=== PATIENT | female | born 1955 | race American Indian/Alaskan Native ===

== ENCOUNTER 2019-10-31 09:42 | Emergency (ER) | payer MEDICARE ==
--- NOTE | 2019-10-31 11:10 | Vascular Lab Report ---
DUPLEX DOPPLER LOWER EXTREMITY VEINS, RIGHT INDICATION: Right lower extremity pain and swelling for one day. TECHNIQUE: Duplex doppler imaging was performed through the veins of the right lower extremity using venous compression and other maneuvers. COMPARISON: No relevant prior imaging study available. FINDINGS: Right Common femoral vein: Negative. Right Superficial femoral vein: Negative. Right Popliteal vein: Negative. Right Calf veins: Negative. Additional findings: Small popliteal cyst is noted in the popliteal fossa.. IMPRESSION: No sonographic evidence for DVT in the right lower extremity. Popliteal cyst. Signer Name: Matthew De La O Jr, MD Signed: 10/31/2019 11:06 AM Workstation Name: [id number]
[2019-10-31] MEDS ORDERED: CYCLOBENZAPRINE 10 MG TAB PO ONE (12:42)
[2019-10-31] MEDS ORDERED: traMADol 50 MG TAB PO ONE (12:42)
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
[2019-10-31] MEDS ORDERED: KETOROLAC 60 MG/2 ML INJ IM ONE (12:44)
--- NOTE | 2019-10-31 12:47 | Emergency Department Report ---
ED Lower Extremity HPI - General Chief Complaint: Extremity Problem,Nontraumatic Stated Complaint: RT LEG PAIN Time Seen by Provider: 10/31/19 11:48 Source: patient Mode of arrival: Ambulatory Limitations: No Limitations - History of Present Illness Initial Comments: This is a 64-year-old female here for right knee pain and swelling. She said she did not have a knee trauma or any history of arthritis. Patient does a lot of walking and climbing at work. She denies any swelling or pain to her calves. She denies any fever or chills. Denies any numbness or tingling to extremity or any history of arthritis. Patient has a history of high blood pressure that she takes cholesterol medication bed that is the only thing that she has and this started yesterday. Denies taking any pain medication MD Complaint: other (right knee pain and swelling) Onset/Timin -: days(s) Injury: Knee: Right (pain and swelling in) Type of Injury: unknown Severity: severe Severity scale (0 -10): 10 Improves With: rest Worsens With: weight bearing, movement Context: walking Associated Symptoms: swelling, able to partially bear weight. denies: numbness, tingling, unable to bear weight Treatments Prior to Arrival: other (none) - Related Data Previous Rx's Medication Instructions Recorded Last Taken Type Ibuprofen [Motrin] 600 mg PO Q8H PRN #12 tablet 10/31/19 Unknown Rx Allergies Allergy/AdvReac Type Severity Reaction Status Date / Time No Known Allergies Allergy Verified 11/06/16 04:50 ED Review of Systems ROS: Stated complaint: RT LEG PAIN Other details as noted in HPI Constitutional: denies: chills, fever Respiratory: denies: cough, shortness of breath, wheezing Cardiovascular: denies: chest pain, palpitations, edema, syncope Gastrointestinal: denies: abdominal pain, nausea, vomiting Genitourinary: denies: hematuria Musculoskeletal: joint swelling, arthralgia. denies: back pain, myalgia Skin: denies: rash Neurological: abnormal gait. denies: headache, numbness, paresthesias, vertigo ED Past Medical Hx - Past Medical History Previous Medical History?: Yes Hx Hypertension: Yes - Surgical History Past Surgical History?: No - Family History Family history: hypertension, other (high cholesterol) - Social History Smoking Status: Never Smoker Substance Use Type: None - Medications Home Medications: Home Medications Medication Instructions Recorded Confirmed Last Taken Type Ibuprofen [Motrin] 600 mg PO Q8H PRN #12 tablet 10/31/19 Unknown Rx ED Physical Exam - General Limitations: No Limitations General appearance: alert, in no apparent distress - Head Head exam: Present: atraumatic, normocephalic - ENT ENT exam: Present: normal exam, normal orophraynx, mucous membranes moist, TM's normal bilaterally, normal external ear exam - Neck Neck exam: Present: normal inspection, full ROM, other ( full range of motion). Absent: tenderness, lymphadenopathy - Respiratory Respiratory exam: Present: normal lung sounds bilaterally. Absent: respiratory distress, chest wall tenderness - Cardiovascular Cardiovascular Exam: Present: regular rate, normal rhythm, normal heart sounds - Extremities Exam Extremities exam: Present: normal inspection, full ROM, tenderness (tender to palpate right knee with effusion. Pain with range of motion.), normal capillary refill, joint swelling, other (my extremity physical exam except for right knee swelling and tenderness to palpation and range of motion). Absent: pedal edema, calf tenderness - Expanded Lower Extremity Exam Right Hip exam: Present: normal inspection, full ROM, pelvic stability. Absent: tenderness, swelling Upper Leg exam: Present: normal inspection, full ROM. Absent: tenderness, swelling, erythema Knee exam: Present: full ROM (pain range of motion), tenderness (right anterior knee), swelling (right medial knee), crepidus, effusion, pain w/ pronation/supination, full knee extension (full knee extension but she has moderate pain with flexion and extension). Absent: normal inspection, abrasion, laceration, ecchymosis, deformity, dislocation, erythema, pain/laxity with valgus, pain/laxity with varus Lower Leg exam: Present: normal inspection, full ROM. Absent: erythema, palpable cord, Kirsty's sign Foot/Toe exam: Present: normal inspection, full ROM. Absent: tenderness, deformity, crepidus, erythema, calcaneal tenderness, tenderness at base of 5th metatarsal, nail avulsion, subungual hematoma Neuro vascular tendon exam: Present: no vascular compromise Gait: Positive: antalgic - Back Exam Back exam: Present: normal inspection, full ROM, other (ambulates with limp to the right side due to knee pain and swelling). Absent: tenderness, CVA tenderness (R), CVA tenderness (L), muscle spasm, paraspinal tenderness, vertebral tenderness, rash noted - Neurological Exam Neurological exam: Present: alert, oriented X3, abnormal gait (knee pain and swelling), reflexes normal - Psychiatric Psychiatric exam: Present: normal affect, normal mood - Skin Skin exam: Present: warm, dry, intact, normal color. Absent: rash ED Course Vital Signs 10/31/19 10/31/19 09:49 13:16 Temperature 98.0 F 98.6 F Pulse Rate 92 H 71 Respiratory 16 17 Rate Blood Pressure 117/54 Blood Pressure 135/69 [Right] O2 Sat by Pulse 99 100 Oximetry - Reevaluation(s) Reevaluation #1: 10/31/19 15:23 Patient received Toradol 60 mg IM in emergency room she said makes her pain better. ED Lower Extremity MDM - Radiology Data Radiology results: report reviewed Venous Doppler duplex ultrasound to further extremity shows no DVT but small popliteal cyst. X-ray of right knee shows severe medial compartment joint space narrowing with bone spurring F an moderate effusion.[facility] [address] [place] [address] Vascular Lab Report Signed Patient: KAYLEE JIMENEZ MR#: [id number] : 1955 Acct:[id number] Age/Sex: 64 / F ADM Date: 10/31/19 Loc: ED Attending Dr: Ordering Physician: SARAH ROBLES MD Date of Service: 10/31/19 Procedure(s): VL venous duplex LE RT Accession Number(s): [id number] cc: SARAH ROBLES MD DUPLEX DOPPLER LOWER EXTREMITY VEINS, RIGHT INDICATION: Right lower extremity pain and swelling for one day. TECHNIQUE: Duplex doppler imaging was performed through the veins of the right lower extremity using venous compression and other maneuvers. COMPARISON: No relevant prior imaging study available. FINDINGS: Right Common femoral vein: Negative. Right Superficial femoral vein: Negative. Right Popliteal vein: Negative. Right Calf veins: Negative. Additional findings: Small popliteal cyst is noted in the popliteal fossa.. IMPRESSION: No sonographic evidence for DVT in the right lower extremity. Popliteal cyst. Signer Name: Matthew De La O Jr, MD Signed: 10/31/2019 11:06 AM Workstation Name: [id number] Transcribed By: TTR Dictated By: MATTHEW DE LA O JR, MD Electronically Authenticated By: MATTHEW DE LA O JR, MD Signed Date/Time: 10/31/19 1106 DD/ 1100 TD/TT: Findings [facility] [address] [place] [address] XRay Report Signed Patient: KAYLEE JIMENEZ MR#: [id number] : 1955 Acct:[id number] Age/Sex: 64 / F ADM Date: 10/31/19 Loc: ED Attending Dr: Ordering Physician: MARLENI REDD Date of Service: 10/31/19 Procedure(s): XR knee 3V RT Accession Number(s): [id number] cc: MARLENI REDD Fluoro Time In Minutes: RIGHT KNEE, 3 VIEWS INDICATION: pain and swelling right knee. COMPARISON: None. IMPRESSION: Severe medial compartment joint space narrowing is identified. Moderate retropatellar spurring is identified. There are mild osteoarthritic changes in the lateral compartment. No e vidence for fracture or bone lesion. Moderate joint effusion is identified on the lateral image. Signer Name: Matthew De La O Jr, MD Signed: 10/31/2019 2:17 PM Workstation Name: [id number] Transcribed By: TTR Dictated By: MATTHEW DE LA O JR, MD Electronically Authenticated By: MATTHEW DE LA O JR, MD Signed Date/Time: 10/31/19 1417 DD/ 1416 TD/TT: - Medical Decision Making This 64-year-old female here for right knee pain that started yesterday. Patient has ultrasound Doppler that shows no DVT or SVT but small popliteal cyst. X-ray shows severe degenerative joint disease with moderate effusion. - Differential Diagnosis fx/dislocation. ostemyelitis, DJD, effusion Critical care attestation.: If time is entered above; I have spent that time in minutes in the direct care of this critically ill patient, excluding procedure time. ED Disposition Clinical Impression: Effusion, right knee Degenerative joint disease of knee, right Qualifiers: Osteoarthritis type: unspecified Qualified Code(s): M17.11 - Unilateral primary osteoarthritis, right knee Torres's cyst of knee Qualifiers: Laterality: right Qualified Code(s): M71.21 - Synovial cyst of popliteal space [Torres], right knee Disposition: - TO HOME OR SELFCARE Is pt being admited?: No Does the pt Need Aspirin: No Condition: Stable Instructions: Knee Effusion (ED), Arthralgia (ED), Knee Exercises (GEN), Osteoarthritis (ED), Knee Immobilizer (ED), Crutch Instructions (ED), RICE Therapy (ED) Additional Instructions: Follow-up with orthopedic doctor as instructed. You can go to Dr. Avalos or research and orthopedic If he condition worsens, return to the emergency room. Take Motrin as prescribed to take this medication with food as it can cause irritation if his stomach lining Referrals: NIVIA HOLLIS MD [Primary Care Provider] - 2-3 Days JOHANN AVALOS MD [Staff Physician] - 11/03/[address] [facility] [Provider Group] - 11/03/19 Forms: Work/School Release Form(ED)
[2019-10-31 13:17] VITALS: BP 117/54
--- NOTE | 2019-10-31 14:21 | XRay Report ---
RIGHT KNEE, 3 VIEWS INDICATION: pain and swelling right knee. COMPARISON: None. IMPRESSION: Severe medial compartment joint space narrowing is identified. Moderate retropatellar sp urring is identified. There are mild osteoarthritic changes in the lateral compartment. No evidence f or fracture or bone lesion. Moderate joint effusion is identified on the lateral image. Signer Name: Matthew De La O Jr, MD Signed: 10/31/2019 2:17 PM Workstation Name: [id number]
== END 2019-10-31 15:46 | disposition home or self-care (01) ==
LOC: ED 09:42
DX: M25.461 Effusion, right knee (principal); M17.11 Unilateral primary osteoarthritis, right knee; M71.21 Synovial cyst of popliteal space [Baker], right knee; I10 Essential (primary) hypertension; Z79.1 Long term (current) use of non-steroidal anti-inflammatories (NSAID)
CPT/HCPCS: 73562; 93971; 96372; 99284; J1885

== ENCOUNTER 2020-10-07 19:28 | Emergency (ER) | payer MEDICARE ==
--- NOTE | 2020-10-07 22:26 | Event Note ---
ED Screening Note ED Screening Note: muscle crampings bilateral legs that began today after work states she was on her feet all day no leg swelling no fever no n/v/d no cough no SOB no dysuria no urinary frequency PMHx HTN, HLD, borderline DM This initial assessment/diagnostic orders/clinical plan/treatment(s) is/are subject to change based on patients health status, clinical progression and re- assessment by fellow clinical providers in the ED. Further treatment and workup at subsequent clinical providers discretion. Patient/guardian urged not to elope from the ED as their condition may be serious if not clinically assessed and managed. Initial orders include: labs, UA
[2020-10-07 23:18] LABS: Bilirubin,Urine NEG (Negative); Blood,Urine NEG (Negative); Color,Urine Colorless (Yellow); Protein,Urine <15 mg/dL mg/dL (Negative); Urobilinogen,Urine < 2.0 mg/dL (<2.0)
[2020-10-08 00:25] LABS: Hematocrit 38.8 % (30.3-42.9); Hemoglobin 12.7 gm/dl (10.1-14.3); Mean Corpuscular HGB Conc 33 % (30-34); Mean Corpuscular Volume 85 fl (79-97); Platelet Count 189 K/mm3 (140-440); Red Blood Count 4.58 M/mm3 (3.65-5.03); Red Cell Distribution Width 14.3 % (13.2-15.2)
[2020-10-08 00:30] LABS: Basophils # (Auto) 0.1 K/mm3 (0.0-0.1); Basophils % (Auto) 1.1 % (0.0-1.8); Eosinophils % (Auto) 0.1 % (0.0-4.3); Lymphocytes # (Auto) 0.9 K/mm3 (1.2-5.4); Lymphocytes % (Auto) 14.5 % (13.4-35.0); Monocytes # (Auto) 1.6 K/mm3 (0.0-0.8)
[2020-10-08 01:06] LABS: BUN/Creatinine Ratio 11; Blood Urea Nitrogen 8 mg/dL (7-17); Calcium 9.2 mg/dL (8.4-10.2)
[2020-10-08 01:07] LABS: Alanine Aminotransferase 12 units/L (7-56); Albumin 4.7 g/dL (3.9-5); Hemolysis Index 35
[2020-10-08] MEDS ORDERED: traMADol 50 MG TAB PO ONE (01:48)
[2020-10-08] MEDS ORDERED: KETOROLAC 60 MG/2 ML INJ IM ONE (01:48)
--- NOTE | 2020-10-08 01:48 | Emergency Department Report ---
ED General Adult HPI - General Chief complaint: Weakness Stated complaint: FEVER Time Seen by Provider: 10/07/20 22:24 Source: EMS Mode of arrival: Ambulatory Limitations: No Limitations - History of Present Illness Initial comments: Patient is a 65-year-old female presents emergency room with complaints of muscle cramping to the bilateral legs that began today after work. she states she was on her feet all day. She states that she has had similar symptoms in the past. She denies any leg swelling, fever, n/v/d, cough, SOB, dysuria, urinary frequency, dark urine. she denies any fall or injury. she denies any numbness or weakness. PMHx HTN, HLD, borderline DM - Related Data Previous Rx's Medication Instructions Recorded Last Taken Type Ibuprofen [Motrin] 600 mg PO Q8H PRN #12 tablet 10/31/19 Unknown Rx Naproxen [EC-Naprosyn] 375 mg PO BID PRN #14 tablet. 10/08/20 Unknown Rx methOCARBAMOL [Robaxin TAB] 500 mg PO BID PRN #14 tab 10/08/20 Unknown Rx Allergies Allergy/AdvReac Type Severity Reaction Status Date / Time No Known Allergies Allergy Verified 11/06/16 04:50 ED Review of Systems ROS: Stated complaint: FEVER Other details as noted in HPI Comment: All other systems reviewed and negative ED Past Medical Hx - Past Medical History Hx Hypertension: Yes Hx Diabetes: Yes (boarderline) Additional medical history: cholesterol - Social History Smoking Status: Never Smoker Substance Use Type: None - Medications Home Medications: Home Medications Medication Instructions Recorded Confirmed Last Taken Type Ibuprofen [Motrin] 600 mg PO Q8H PRN #12 tablet 10/31/19 Unknown Rx Naproxen [EC-Naprosyn] 375 mg PO BID PRN #14 tablet. 10/08/20 Unknown Rx methOCARBAMOL [Robaxin TAB] 500 mg PO BID PRN #14 tab 10/08/20 Unknown Rx ED Physical Exam - General Limitations: No Limitations General appearance: alert, in no apparent distress - Head Head exam: Present: atraumatic, normocephalic - Eye Eye exam: Present: normal appearance - ENT ENT exam: Present: mucous membranes moist - Respiratory Respiratory exam: Present: normal lung sounds bilaterally. Absent: respiratory distress, wheezes, rales, rhonchi, stridor, chest wall tenderness, accessory muscle use, decreased breath sounds, prolonged expiratory - Cardiovascular Cardiovascular Exam: Present: regular rate, normal rhythm, normal heart sounds. Absent: systolic murmur, diastolic murmur, rubs, gallop - Extremities Exam Extremities exam: Present: other (no ttp of the BLE, no edema BLE, no skin changes, no increased warmth, no erythema, FROM of the BLE, no calf ttp bilaterally, neurovascularly intact) - Neurological Exam Neurological exam: Present: alert, oriented X3, CN II-XII intact, normal gait. Absent: motor sensory deficit - Psychiatric Psychiatric exam: Present: normal affect, normal mood - Skin Skin exam: Present: warm, dry, intact ED Course Vital Signs 10/07/20 20:23 Temperature 99.1 F Pulse Rate 93 H Respiratory 17 Rate Blood Pressure 137/67 O2 Sat by Pulse 99 Oximetry ED Medical Decision Making - Lab Data Result diagrams: 10/07/20 23:35 10/07/20 23:35 Lab Results 10/07/20 10/07/20 10/07/20 Range/Units 23:35 23:35 Unknown WBC 6.0 (4.5-11.0) K/mm3 RBC 4.58 (3.65-5.03) M/mm3 Hgb 12.7 (10.1-14.3) gm/dl Hct 38.8 (30.3-42.9) % MCV 85 (79-97) fl MCH 28 (28-32) pg MCHC 33 (30-34) % RDW 14.3 (13.2-15.2) % Plt Count 189 (140-440) K/mm3 Lymph % (Auto) 14.5 (13.4-35.0) % Lamb % (Auto) Baby Nurse Eos % (Auto) 0.1 (0.0-4.3) % Baso % (Auto) 1.1 (0.0-1.8) % Lymph # (Auto) 0.9 L (1.2-5.4) K/mm3 Lamb # (Auto) 1.6 H (0.0-0.8) K/mm3 Eos # (Auto) 0.0 (0.0-0.4) K/mm3 Baso # (Auto) 0.1 (0.0-0.1) K/mm3 Seg Neutrophils % 56.9 (40.0-70.0) % Seg Neutrophils # 3.4 (1.8-7.7) K/mm3 Sodium 141 (137-145) mmol/L Potassium 4.1 (3.6-5.0) mmol/L Chloride 105.4 (98-107) mmol/L Carbon Dioxide 21 L (22-30) mmol/L Anion Gap 19 mmol/L BUN 8 (7-17) mg/dL Creatinine 0.7 (0.6-1.2) mg/dL Estimated GFR > 60 ml/min BUN/Creatinine Ratio 11 % Glucose 99 (65-100) mg/dL Calcium 9.2 (8.4-10.2) mg/dL Total Bilirubin 0.40 (0.1-1.2) mg/dL AST 21 (5-40) units/L ALT 12 (7-56) units/L Alkaline Phosphatase 101 (35-129) units/L Total Creatine Kinase 142 H (30-135) units/L Total Protein 7.1 (6.3-8.2) g/dL Albumin 4.7 (3.9-5) g/dL Albumin/Globulin Ratio 2.0 % Urine Color Colorless (Yellow) Urine Turbidity Clear (Clear) Urine pH 8.0 H (5.0-7.0) Ur Specific [place] 1.002 L (1.003-1.030) Urine Protein <15 mg/dl (Negative) mg/dL Urine Glucose (UA) Neg (Negative) mg/dL Urine Ketones Neg (Negative) mg/dL Urine Blood Neg (Negative) Urine Nitrite Neg (Negative) Urine Bilirubin Neg (Negative) Urine Urobilinogen < 2.0 (<2.0) mg/dL Ur Leukocyte Esterase Mod (Negative) Urine WBC (Auto) 2.0 (0.0-6.0) /HPF Urine RBC (Auto) 3.0 (0.0-6.0) /HPF U Epithel Cells (Auto) 2.0 (0-13.0) /HPF - Medical Decision Making Patient is a 65-year-old female presents emergency room with complaints of muscl e cramping to the bilateral legs that began today after work. she states she was on her feet all day. She states that she has had similar symptoms in the past. She denies any leg swelling, fever, n/v/d, cough, SOB, dysuria, urinary frequency, dark urine. she denies any fall or injury. she denies any numbness or weakness. PMHx HTN, HLD, borderline DM. VSS. on exam: no ttp of the BLE, no edema BLE, no skin changes, no increased warmth, no erythema, FROM of the BLE, no calf ttp bilaterally, neurovascularly intact. Labs and UA are stable. Patient given Toradol IM and tramadol while in the emergency department and symptoms improved and she was not driving. She has no clinical signs of DVT. She has no clinical signs of infection or cellulitis. Patient given prescription for Robaxin and naproxen. Advised patient to please use medication as prescribed as needed. May use ice pack, heating pad, rest, Epson salt bath, elevation of the legs. Follow-up with your primary care doctor. Follow-up with orthopedic doctor. Return to emergency room for any new or worsening symptoms. - Differential Diagnosis Strain, muscle cramp, rhabdomyolysis, electrolyte disturbance, myositis Critical care attestation.: If time is entered above; I have spent that time in minutes in the direct care of this critically ill patient, excluding procedure time. ED Disposition Clinical Impression: Bilateral leg cramps Disposition: DC-01 TO HOME OR SELFCARE Is pt being admited?: No Does the pt Need Aspirin: No Condition: Stable Instructions: Muscle Cramps and Spasms, [id number] Additional Instructions: please use medication as prescribed as needed. Do not drive or operate machinery while taking muscle relaxer Robaxin. May use ice pack, heating pad, rest, Epson salt bath, elevation of the legs. Follow-up with your primary care doctor. Follow-up with orthopedic doctor. Return to emergency room for any new or worsening symptoms. Prescriptions: Naproxen [EC-Naprosyn] 375 mg PO BID PRN #14 tablet.dr PRN Reason: pain methOCARBAMOL [Robaxin TAB] 500 mg PO BID PRN #14 tab PRN Reason: pain Referrals: PRIMARY MD GUANAKO [Primary Care Provider] - 2-3 Days CON RAI MD [Staff Physician] - 2-3 Days [facility] [Provider Group] - 2-3 Days JOHANN HOLT MD [Staff Physician] - 2-[address] [facility] [Provider Group] - 2-3 Days Forms: Work/School Release Form(ED) Time of Disposition: 01:53 Print Language: BELARUSIAN
[2020-10-08 07:55] VITALS: BP 133/62
== END 2020-10-08 02:25 | disposition home or self-care (01) ==
LOC: ED 19:28
DX: M79.605 Pain in left leg (principal); M79.604 Pain in right leg; F50.9 Eating disorder, unspecified; R53.1 Weakness; I10 Essential (primary) hypertension; E11.9 Type 2 diabetes mellitus without complications; Z79.1 Long term (current) use of non-steroidal anti-inflammatories (NSAID); Z79.899 Other long term (current) drug therapy
CPT/HCPCS: 36415; 80053; 81001; 82550; 85025; 96372; 99283; J1885

== ENCOUNTER 2021-04-10 22:25 | Observation (INO) | payer MEDICARE ==
[2021-04-10] MEDS ORDERED: ASPIRIN 325 MG TAB PO ONE (22:32)
--- NOTE | 2021-04-10 22:51 | Emergency Department Report ---
ED Chest Pain HPI - General Chief Complaint: Chest Pain Stated Complaint: GAS/CHEST PAIN PUI?: No Time Seen by Provider: 04/10/21 22:39 Source: patient Mode of arrival: Ambulatory Limitations: No Limitations - History of Present Illness Initial Comments: Patient is a 65-year-old female that presents emergency room with complaints of chest pain. Patient states the chest pain is in the substernal left chest that is radiating to her left upper extremity and left lateral chest. Patient denies shortness of breath. Patient denies fever or chills. Patient denies nausea and vomiting. Patient complains of diaphoresis at times. Patient states that the chest pain started at 9 PM. Patient states the chest pain is worsening. Patient states she has a history of high blood pressure and hyperlipidemia. Patient denies recent travel. Patient denies recent international travel. Patient denies exposure to the novel coronavirus. Patient denies sick contacts. Patient denies fever and chills. Patient denies cough. Patient denies diarrhea. Patient denies coming in contact with anybody with symptoms of the novel coronavirus. MD Complaint: chest pain -: Sudden Onset: during rest Pain Location: substernal Pain Radiation: LUE Severity: severe Severity scale (0 -10): 10 Quality: sharp Consistency: constant Improves With: rest Worsens With: exertion re: denies: nausea, vomting, diaphoresis, dyspnea, sense of impending doom Other Symptoms: denies: cough, fever, syncope, rash, acid taste in mouth, leg swelling, palpitations, burping Treatments Prior to Arrival: none Aspirin use within the Past 7 Days: (1) Yes - Related Data On Oral Contraceptives: No Previous Rx's Medication Instructions Recorded Last Taken Type Ibuprofen [Motrin] 600 mg PO Q8H PRN #12 tablet 10/31/19 Unknown Rx Naproxen [EC-Naprosyn] 375 mg PO BID PRN #14 tablet. 10/08/20 Unknown Rx methOCARBAMOL [Robaxin TAB] 500 mg PO BID PRN #14 tab 10/08/20 Unknown Rx Allergies Allergy/AdvReac Type Severity Reaction Status Date / Time No Known Allergies Allergy Verified 11/06/16 04:50 Heart Score - HEART Score History: Moderately suspicious EKG: Normal Age: > 65 Risk factors: 1-2 risk factors Troponin: < normal limit HEART Score: 4 - EKG Read Time Time EKG Completed: 22:37 EKG Read Time: 22:39 ED Review of Systems ROS: Stated complaint: GAS/CHEST PAIN Other details as noted in HPI Constitutional: denies: chills, fever Eyes: denies: eye pain, eye discharge, vision change ENT: denies: ear pain, throat pain Respiratory: denies: cough, shortness of breath, wheezing Cardiovascular: as per HPI, chest pain. denies: palpitations Endocrine: no symptoms reported Gastrointestinal: denies: abdominal pain, nausea, diarrhea Genitourinary: denies: urgency, dysuria, discharge Musculoskeletal: denies: back pain, joint swelling, arthralgia Skin: denies: rash, lesions Neurological: denies: headache, weakness, paresthesias Psychiatric: denies: anxiety, depression Hematological/Lymphatic: denies: easy bleeding, easy bruising ED Past Medical Hx - Past Medical History Previous Medical History?: Yes Hx Hypertension: Yes Hx Diabetes: Yes (boarderline) Additional medical history: cholesterol - Surgical History Past Surgical History?: No - Family History Family history: no significant - Social History Smoking Status: Never Smoker Substance Use Type: None - Medications Home Medications: Home Medications Medication Instructions Recorded Confirmed Last Taken Type Ibuprofen [Motrin] 600 mg PO Q8H PRN #12 tablet 10/31/19 Unknown Rx Naproxen [EC-Naprosyn] 375 mg PO BID PRN #14 tablet.dr 10/08/20 Unknown Rx methOCARBAMOL [Robaxin TAB] 500 mg PO BID PRN #14 tab 10/08/20 Unknown Rx ED Physical Exam - General Limitations: No Limitations General appearance: alert, in no apparent distress - Head Head exam: Present: atraumatic, normocephalic - Eye Eye exam: Present: normal appearance - ENT ENT exam: Present: mucous membranes moist - Neck Neck exam: Present: normal inspection - Respiratory Respiratory exam: Present: normal lung sounds bilaterally. Absent: respiratory distress, wheezes, rales - Cardiovascular Cardiovascular Exam: Present: regular rate, normal rhythm. Absent: systolic murmur, diastolic murmur, rubs, gallop - GI/Abdominal GI/Abdominal exam: Present: soft, normal bowel sounds - Extremities Exam Extremities exam: Present: normal inspection - Back Exam Back exam: Present: normal inspection - Neurological Exam Neurological exam: Present: alert, oriented X3 - Psychiatric Psychiatric exam: Present: normal affect, normal mood - Skin Skin exam: Present: warm, dry, intact, normal color. Absent: rash ED Course Vital Signs 04/10/21 04/10/21 23:19 23:49 Respiratory 16 16 Rate - Reevaluation(s) Reevaluation #1: Patient's chest pain has improved. Patient received morphine and aspirin. I discussed all results with patient. I discussed plan of care with patient. Patient agrees with plan of care and admission. Patient to be admitted to the hospitalist service. 04/11/21 00:06 - Consultations Consultation #1: Hospitalist consulted for admission. Hospitalist to admit patient. 04/11/21 00:07 CELINA score - Celina Score Age > 65: (1) Yes Aspirin use within the Past 7 Days: (1) Yes 3 or more CAD Risk Factors: (0) No 2 or more Angina events in past 24 hrs: (0) No Known CAD with more than 50% Stenosis: (0) No Elevated Cardiac Markers: (0) No ST Deviation Greater than 0.5mm: (0) No CELINA Score: 2 ED Medical Decision Making - Lab Data Result diagrams: 04/10/21 22:41 04/10/21 22:41 - EKG Data -: EKG Interpreted by Me EKG shows normal: sinus rhythm, axis, intervals, QRS complexes, ST-T waves Rate: normal - Radiology Data Radiology results: report reviewed, image reviewed interpreted by me: Chest x-ray: No pneumonia, no pneumothorax, no foreign body, no osseous findings, no acute findings CHEST 1 VIEW 04/10/2021 10:40 PM INDICATION / CLINICAL INFORMATION: chest pain. COMPARISON: None available. FINDINGS: SUPPORT DEVICES: None. HEART / MEDIASTINUM: No significant abnormality. LUNGS / PLEURA: Lung volumes are reduced without an acute pulmonary abnormality. No significant pleural effusion. No pneumothorax. ADDITIONAL FINDINGS: No significant additional findings. IMPRESSION: 1. No acute abnormality of the chest. - Medical Decision Making Patient is a 65-year-old female that presents emergency room with complaints of chest pain. Patient chest pain is the left chest and substernal and was radiating to left shoulder and the left lateral chest. Patient brought to acute care room immediately after triage. Patient given aspirin and morphine and Zofran after initial evaluation. Patient chest pain improved. Patient had labs done which were essentially unremarkable. Patient EKG done which was negative for acute findings and shows a normal sinus rhythm. Patient EKG does not show any ST segment changes but shows a sinus arrhythmia. I personally reviewed the EKG. Patient had a chest x-ray which was negative for acute findings. I pe rsonally reviewed the chest x-ray. Patient has an elevated heart score and will require inpatient rule out of ACS. Patient admitted to the hospital service for further evaluation treatment and rule out ACS. Critical care time documented due to the multiple reassessments, prolonged time at the bedside, interpretation of diagnostics and labs. - Differential Diagnosis Chest pain, ACS, gastritis, Critical Care Time: Yes Critical care time in (mins) excluding proc time.: 35 Critical care attestation.: If time is entered above; I have spent that time in minutes in the direct care of this critically ill patient, excluding procedure time. Critical Care Time: 35 minutes ED Disposition Clinical Impression: Chest pain Qualifiers: Chest pain type: unspecified Qualified Code(s): R07.9 - Chest pain, unspecified Disposition: OP ADMIT IP TO THIS HOSP Is pt being admited?: Yes Does the pt Need Aspirin: No Condition: Critical Time of Disposition: 00:09
--- NOTE | 2021-04-10 23:02 | XRay Report ---
CHEST 1 VIEW 04/10/2021 10:40 PM INDICATION / CLINICAL INFORMATION: chest pain. COMPARISON: None available. FINDINGS: SUPPORT DEVICES: None. HEART / MEDIASTINUM: No significant abnormality. LUNGS / PLEURA: Lung volumes are reduced without an acute pulmonary abnormality. No significant pleur al effusion. No pneumothorax. ADDITIONAL FINDINGS: No significant additional findings. IMPRESSION: 1. No acute abnormality of the chest. Signer Name: William Fraga MD Signed: 04/10/2021 10:58 PM Workstation Name: [id number]
[2021-04-10 23:07] LABS: Basophils # (Auto) 0.1 K/mm3 (0.0-0.1); Basophils % (Auto) 0.7 % (0.0-1.8); Eosinophils # (Auto) 0.1 K/mm3 (0.0-0.4); Eosinophils % (Auto) 1.3 % (0.0-4.3); Hematocrit 39.7 % (30.3-42.9); Hemoglobin 12.9 gm/dl (10.1-14.3); Lymphocytes # (Auto) 2.5 K/mm3 (1.2-5.4); Lymphocytes % (Auto) 28.7 % (13.4-35.0); Mean Corpuscular HGB Conc 33 % (30-34); Mean Corpuscular Volume 85 fl (79-97); Monocytes # (Auto) 0.6 K/mm3 (0.0-0.8); Monocytes % (Auto) 7.5 % (0.0-7.3); Platelet Count 238 K/mm3 (140-440); Red Blood Count 4.69 M/mm3 (3.65-5.03); Red Cell Distribution Width 13.7 % (13.2-15.2)
[2021-04-10] MEDS ORDERED: MORPHINE 2 MG/1 ML INJ IV ONE (23:11)
[2021-04-10] MEDS ORDERED: ONDANSETRON 4 MG/2 ML INJ IV ONE (23:11)
[2021-04-10] MEDS ORDERED: ONDANSETRON 4 MG/2 ML INJ ONE (23:16)
[2021-04-10] MEDS ORDERED: MORPHINE 4 MG/1 ML INJ ONE (23:16)
[2021-04-10 23:30] LABS: Alanine Aminotransferase 16 units/L (7-56); Albumin 4.3 g/dL (3.9-5); Blood Urea Nitrogen 14 mg/dL (7-17); Calcium 8.6 mg/dL (8.4-10.2); Hemolysis Index 4
[2021-04-10 23:32] LABS: BUN/Creatinine Ratio 28
[2021-04-11] MEDS ORDERED: NITROGLYCERIN 0.4 MG TAB SUBL SL PRN (01:23)
[2021-04-11] MEDS ORDERED: ACETAMINOPHEN 325 MG TAB PO PRN (01:23)
[2021-04-11] MEDS ORDERED: traMADol 50 MG TAB PO PRN (01:23)
[2021-04-11] MEDS ORDERED: NAPROXEN 375 MG PO PRN (01:23)
[2021-04-11] MEDS ORDERED: IBUPROFEN 600 MG TAB PO PRN (01:23)
[2021-04-11] MEDS ORDERED: MORPHINE 4 MG/1 ML INJ IV PRN (01:23)
[2021-04-11] MEDS ORDERED: DEXTROSE 50% IN WATER (25GM) 50 ML SYRINGE IV PRN (01:25)
[2021-04-11] MEDS ORDERED: hydrALAZINE 20 MG/1 ML INJ IV PRN (01:25)
[2021-04-11] MEDS ORDERED: SODIUM CHLORIDE 0.9% 1000 ML 1,000 ML IV SCH (01:30)
--- NOTE | 2021-04-11 01:31 | History and Physical Report ---
History of Present Illness Date of examination: 04/11/21 Date of admission: 04/11/21 00:09 Chief complaint: Chest pain History of present illness: 65-year-old female with past medical history of hypertension, hyperlipidemia, borderline diabetes was brought to the emergency room with complaints of chest pain which is in the substernal sharp 10/10 left chest that is radiating to her left upper extremity and left lateral chest. Patient denies shortness of breath. Patient denies fever or chills. Patient denies nausea and vomiting. Patient complains of diaphoresis at times. Patient states that the chest pain started at 9 PM. Patient states the chest pain is worsening. In the emergency room initial cardiac enzyme is negative troponin is 0.010 Past History Past Medical History: diabetes, hypertension, hyperlipidemia Medications and Allergies Allergies Allergy/AdvReac Type Severity Reaction Status Date / Time No Known Allergies Allergy Verified 11/06/16 04:50 Home Medications Medication Instructions Recorded Confirmed Last Taken Type Ibuprofen [Motrin] 600 mg PO Q8H PRN #12 tablet 10/31/19 Unknown Rx Naproxen [EC-Naprosyn] 375 mg PO BID PRN #14 tablet. 10/08/20 Unknown Rx methOCARBAMOL [Robaxin TAB] 500 mg PO BID PRN #14 tab 10/08/20 Unknown Rx Review of Systems Cardiovascular: chest pain Exam - Constitutional Vitals: Temp Pulse Resp BP Pulse Ox 98.2 F 82 12 161/80 98 04/10/21 22:29 04/11/21 00:00 04/11/21 00:00 04/11/21 00:00 04/11/21 00:00 General appearance: Present: no acute distress, well-nourished - EENT Eyes: Present: PERRL ENT: hearing intact, clear oral mucosa - Neck Neck: Present: supple, normal ROM - Respiratory Respiratory effort: normal Respiratory: bilateral: CTA - Cardiovascular Heart Sounds: Present: S1 & S2. Absent: rub, click - Extremities Extremities: pulses symmetrical, No edema Peripheral Pulses: within normal limits - Abdominal General gastrointestinal: Present: soft, non-tender, non-distended, normal bowel sounds Female genitourinary: Present: normal - Integumentary Integumentary: Present: clear, warm, dry - Musculoskeletal Musculoskeletal: gait normal, strength equal bilaterally - Psychiatric Psychiatric: appropriate mood/affect, intact judgment & insight - Neurologic Neurologic: CNII-XII intact, moves all extremities HEART Score - HEART Score EKG: Normal Age: > 65 Risk factors: 1-2 risk factors Troponin: Troponin T < 0.010 ng/mL (0.00-0.029) 04/10/21 22:41 Troponin: < normal limit Results - Labs CBC & Chem 7: 04/10/21 22:41 04/10/21 22:41 Labs: Laboratory Last Values WBC 8.6 K/mm3 (4.5-11.0) 04/10/21 22:41 RBC 4.69 M/mm3 (3.65-5.03) 04/10/21 22:41 Hgb 12.9 gm/dl (10.1-14.3) 04/10/21 22:41 Hct 39.7 % (30.3-42.9) 04/10/21 22:41 MCV 85 fl (79-97) 04/10/21 22:41 MCH 28 pg (28-32) 04/10/21 22:41 MCHC 33 % (30-34) 04/10/21 22:41 RDW 13.7 % (13.2-15.2) 04/10/21 22:41 Plt Count 238 K/mm3 (140-440) 04/10/21 22:41 Lymph % (Auto) 28.7 % (13.4-35.0) 04/10/21 22:41 [place] % (Auto) 7.5 % (0.0-7.3) H 04/10/21 22:41 Eos % (Auto) 1.3 % (0.0-4.3) 04/10/21 22:41 Baso % (Auto) 0.7 % (0.0-1.8) 04/10/21 22:41 Lymph # (Auto) 2.5 K/mm3 (1.2-5.4) 04/10/21 22:41 [place] # (Auto) 0.6 K/mm3 (0.0-0.8) 04/10/21 22:41 Eos # (Auto) 0.1 K/mm3 (0.0-0.4) 04/10/21 22:41 Baso # (Auto) 0.1 K/mm3 (0.0-0.1) 04/10/21 22:41 Seg Neutrophils % 61.8 % (40.0-70.0) 04/10/21 22:41 Seg Neutrophils # 5.3 K/mm3 (1.8-7.7) 04/10/21 22:41 Sodium 139 mmol/L (137-145) 04/10/21 22:41 Potassium 3.9 mmol/L (3.6-5.0) 04/10/21 22:41 Chloride 103.6 mmol/L (98-107) 04/10/21 22:41 Carbon Dioxide 21 mmol/L (22-30) L 04/10/21 22:41 Anion Gap 18 mmol/L 04/10/21 22:41 BUN 14 mg/dL (7-17) 04/10/21 22:41 Creatinine 0.5 mg/dL (0.6-1.2) L 04/10/21 22:41 Estimated GFR > 60 ml/min 04/10/21 22:41 BUN/Creatinine Ratio 28 % 04/10/21 22:41 Glucose 175 mg/dL (65-100) H 04/10/21 22:41 Calcium 8.6 mg/dL (8.4-10.2) 04/10/21 22:41 Total Bilirubin 0.20 mg/dL (0.1-1.2) 04/10/21 22:41 AST 20 units/L (5-40) 04/10/21 22:41 ALT 16 units/L (7-56) 04/10/21 22:41 Alkaline Phosphatase 109 units/L (35-129) 04/10/21 22:41 Troponin T < 0.010 ng/mL (0.00-0.029) 04/10/21 22:41 Total Protein 6.4 g/dL (6.3-8.2) 04/10/21 22:41 Albumin 4.3 g/dL (3.9-5) 04/10/21 22:41 Albumin/Globulin Ratio 2.0 % 04/10/21 22:41 - Imaging and Cardiology Chest x-ray: report reviewed Assessment and Plan VTE prophylaxis?: Chemical Plan of care discussed with patient/family: Yes - Patient Problems (1) Acute coronary syndrome Current Visit: Yes Status: Acute Plan to address problem: Admit the patient to the cardiac telemetry. Aspirin 325 mg p.o. daily. Nitroglycerin as needed. Lipitor 40 mg p.o. daily. Serial cardiac enzyme. Lexiscan. Consult cardiology if needed (2) Hypertension Current Visit: Yes Status: Acute Plan to address problem: Hydralazine 10 mg IV every 6 hours as needed. We will monitor the blood pressure closely (3) Hyperlipidemia Current Visit: Yes Status: Acute Plan to address problem: Lipitor 40 mg p.o. nightly. We will check the lipid panel (4) Diabetes 1.5, managed as type 2 Current Visit: Yes Status: Acute Plan to address problem: We will put the patient on Accu-check every 6 hours with Humalog sliding scale low-dose. We also consult diabetic education. Recheck BMP in the morning (5) DVT prophylaxis Current Visit: Yes Status: Acute Plan to address problem: Heparin 5000 units subcu every 8 hours for DVT prophylaxis. Protonix 40 mg p.o. daily for GI prophylaxis. Patient is a full code
[2021-04-11] MEDS ORDERED: NAPROXEN 375 MG TAB PO PRN (01:33)
[2021-04-11 02:44] LABS: Basophils % (Auto) 0.5 % (0.0-1.8); Eosinophils % (Auto) 0.2 % (0.0-4.3); Hematocrit 37.4 % (30.3-42.9); Hemoglobin 12.5 gm/dl (10.1-14.3); Lymphocytes # (Auto) 0.9 K/mm3 (1.2-5.4); Mean Corpuscular HGB Conc 33 % (30-34); Mean Corpuscular Volume 83 fl (79-97); Monocytes # (Auto) 0.5 K/mm3 (0.0-0.8); Platelet Count 228 K/mm3 (140-440); Red Blood Count 4.48 M/mm3 (3.65-5.03); Red Cell Distribution Width 13.4 % (13.2-15.2)
[2021-04-11 03:03] LABS: Blood Urea Nitrogen 11 mg/dL (7-17); Calcium 8.4 mg/dL (8.4-10.2); Hemolysis Index 4
[2021-04-11 03:07] LABS: BUN/Creatinine Ratio 22
[2021-04-11] MEDS: INSULIN LISPRO 100 UNIT/ML SUB-Q SCH ×2 (05:36→12:17)
[2021-04-11] MEDS: HEPARIN 5,000 UNIT/1 ML VIAL SUB-Q SCH ×2 (05:36→15:12)
[2021-04-11] MEDS ORDERED: REGADENOSON 0.4 MG/5 ML INJ IV ONE (06:57)
[2021-04-11] MEDS ORDERED: PANTOPRAZOLE 40 MG TAB PO SCH (07:30)
--- NOTE | 2021-04-11 10:52 | Electrocardiograph Report ---
[facility] Test Date: 2021-04-10 Test Time: 22:36:15 Pat Name: KAYLEE JIMENEZ Department: Room: A478 1 Gender: F Customer Program Specialist: JEANNA : 1955 Requested By: JOSE ALEJANDRO PERAZA III Order Number: [id number] Reading MD: Kody Rodriguez Measurements Intervals [place] Rate: 68 P: 94 RI: 161 QRS: 72 QRSD: 95 T: 51 QT: 370 QTc: 394 Interpretive Statements Sinus rhythm No previous ECG available for comparison Electronically Signed On 04-11-2021 10:51:40 EDT by Kody Rodriguez
--- NOTE | 2021-04-11 10:54 | Electrocardiograph Report ---
[facility] Test Date: 2021-04-11 Test Time: 08:43:13 Pat Name: KAYLEE JIMENEZ Department: Room: A478 1 Gender: F Boarding Room Fixer: BRENDA : 1955 Requested By: JOSE ALEJANDRO PERAZA III Order Number: [id number] Reading MD: Kody Rodriguez Measurements Intervals [place] Rate: 69 P: 73 [place]: 166 QRS: 77 QRSD: 95 T: 43 QT: 377 QTc: 406 Interpretive Statements Sinus rhythm Compared to ECG 04/10/2021 22:36:15 No significant changes Electronically Signed On 04-11-2021 10:54:05 EDT by Kody Rodriguez
--- NOTE | 2021-04-11 11:03 | Discharge Summary ---
<[email or web address] - Last Filed: 04/12/21 07:15> Providers - Providers Date of Admission: 04/11/21 00:09 Date of discharge: 04/11/21 Attending physician: RYAN SIMMONS 04/11/21 Consult to Cardiac Rehabilitation [CONS] Routine Reason For Exam: Phase I 04/11/21 01:25 Consult to Dietitian/Nutrition [CONS] Routine Physician Instructions: Reason For Exam: Reason for Consult: Diet education 04/11/21 08:04 Consult to Physician [CONS] Routine Comment: Consulting Provider: ADAM SHARMA Physician Instructions: Reason For Exam: CP Primary care physician: LEIGH ANN BIGGS Hospitalization Condition: Stable Hospital course: This is a 65-year-old female with hypertension, hyperlipidemia, "borderline diab etes" who presented to the emergency department on 04/11 with complaints of sharp substernal left-sided chest pain radiating to her left upper extremity and left lateral chest rated at 10/10 without associated shortness of breath, nausea or vomiting or diaphoresis since 2099. Patient was admitted to the hospital service with consult to cardiology for possible with acute coronary syndrome. Patient had a nuclear stress test this morning and showed no scintigraphic evidence of myocardial ischemia or scar, normal left ventricular size and function with no regional wall motion abnormalities. Patient will be discharged home with a prescription for Protonix. Patient will need to follow-up with a primary care physician within 1 to 2 weeks of discharge. Assessment and Plan (1) Acute coronary syndrome Current Visit: Yes Status: Ruled out Plan to address problem: Continue home Lipitor 10 mg p.o. daily Serial cardiac enzymes negative Nuclear stress test showed no scintigraphic evidence of myocardial ischemia or scar, normal left ventricular size and function with no regional wall motion abnormalities. (2) Hypertension Current Visit: Yes Status: Chronic Plan to address problem: Continue home amlodipine Blood pressure monitoring per primary care physician instructions (3) Hyperlipidemia Current Visit: Yes Status: Chronic Plan to address problem: Continue home Lipitor (4) Diabetes 1.5, managed as type 2 Current Visit: Yes Status: Chronic Plan to address problem: Continue dietary modifications and increase in physical activity as tolerated Follow-up with primary care physician Disposition: - TO HOME OR SELFCARE Final Discharge Diagnosis (Prints w/discharge instructions): GERD Time spent for discharge: 35 Core Measure Documentation - Palliative Care Palliative Care/ Comfort Measures: Not Applicable - Core Measures Any of the following diagnoses?: none Exam - Constitutional Vitals: Temp Pulse Resp BP Pulse Ox 97.8 F 69 18 110/70 98 04/11/21 08:17 04/11/21 08:17 04/11/21 10:25 04/11/21 08:17 04/11/21 08:17 General appearance: Present: mild distress - EENT Eyes: Present: PERRL, EOM intact ENT: hearing intact, clear oral mucosa, dentition normal - Neck Neck: Present: normal ROM - Respiratory Respiratory effort: normal Respiratory: bilateral: CTA - Cardiovascular Rhythm: regular Heart Sounds: Present: S1 & S2. Absent: systolic murmur, diastolic murmur - Extremities Extremities: no ischemia, pulses intact, pulses symmetrical, No edema, normal temperature, normal color, Full ROM Peripheral Pulses: within normal limits - Abdominal General gastrointestinal: Present: soft, non-tender, non-distended, normal bowel sounds - Integumentary Integumentary: Present: warm, dry - Musculoskeletal Musculoskeletal: strength equal bilaterally - Psychiatric Psychiatric: cooperative - Neurologic Neurologic: CNII-XII intact, no focal deficits, moves all extremities - Allied Health Allied health notes reviewed: nursing Plan Activity: advance as tolerated Diet: low fat, low cholesterol, low salt, low carbohydrate Special Instructions: record daily BP diary, record blood sugar diary Follow up with: LEIGH ANN BIGGS MD [Primary Care Provider] - 7 Days Forms: Work/School Release Form Prescriptions: Pantoprazole [Protonix TAB] 40 mg PO QDAC #30 tablet traMADoL [Ultram 50 MG tab] 50 mg PO Q6H PRN #10 tablet PRN Reason: Pain, Moderate (4-6) <RYAN SIMMONS - Last Filed: 04/13/21 07:27> Providers - Providers Date of Admission: 04/11/21 00:09 Attending physician: RYAN SIMMONS 04/11/21 Consult to Cardiac Rehabilitation [CONS] Routine Reason For Exam: Phase I 04/11/21 01:25 Consult to Dietitian/Nutrition [CONS] Routine Physician Instructions: Reason For Exam: Reason for Consult: Diet education 04/11/21 08:04 Consult to Physician [CONS] Routine Comment: Consulting Provider: ADAM SHARMA Physician Instructions: Reason For Exam: CP Primary care physician: LEIGH ANN BIGGS Hospitalization Hospital course: For this encounter I have reviewed the PA/DEVELOPMENT CONSULTANT documentation, treatment plan, medical decision making, and I had face to face time with this patient. Exam - Constitutional Vitals: Temp Pulse Resp BP Pulse Ox 97.3 F L 78 17 124/62 98 04/11/21 12:11 04/11/21 12:12 04/11/21 12:12 04/11/21 12:11 04/11/21 12:11
--- NOTE | 2021-04-11 11:53 | Consultation ---
History of Present Illness Consult date: 04/11/21 Requesting physician: RYAN SIMMONS Consult reason: chest pain History of present illness: This patient is a 65-year-old female with a significant history of hypertension, hyperlipidemia, diabetes. She is previously unknown to our practice. Patient presents to [facility] emergency room with complaint of chest pain that began yesterday evening. Chest pain is described as 10/10 sharp substernal and left chest radiating to the right hand, not worse with deep inspiration or exertion and is reproducible with palpation. Patient denies any weakness, dizziness, syncope, shortness of breath, abdominal pain, N/V/D, recent illness or known exposures. At time of interview chest pain is resolved and patient is free of cardiac symptoms. Patient does have significant limp and is unable to complete exercise stress test at this time. Past History Past Medical History: diabetes, hypertension, hyperlipidemia, other (See HPI) Medications and Allergies Allergies Allergy/AdvReac Type Severity Reaction Status Date / Time No Known Allergies Allergy Verified 11/06/16 04:50 Home Medications Medication Instructions Recorded Confirmed Last Taken Type Acetaminophen [Acetaminophen TAB] 650 mg PO Q6H PRN tablet 04/11/21 Unknown Rx AtorvaSTATin 10 mg PO QHS 04/11/21 04/11/21 Unknown History Naproxen [Naprosyn TAB] 375 mg PO BID PRN tablet 04/11/21 Unknown Rx Pantoprazole [Protonix TAB] 40 mg PO QDAC #30 tablet 04/11/21 Unknown Rx amLODIPine 5 mg PO DAILY 04/11/21 04/11/21 Unknown History methOCARBAMOL [Robaxin TAB] 500 mg PO BID PRN tablet 04/11/21 Unknown Rx traMADoL [Ultram 50 MG tab] 50 mg PO Q6H PRN #10 tablet 04/11/21 Unknown Rx Active Meds: Active Medications Acetaminophen (Acetaminophen 325 Mg Tab) 650 mg PO Q6H PRN PRN Reason: Pain, Mild (1-3) Aspirin (Aspirin Ec 325 Mg Tab) 325 mg PO QDAY AZAEL Atorvastatin Calcium (Atorvastatin 40 Mg Tab) 40 mg PO QHS AZAEL Dextrose (Dextrose 50% In Water (25gm) 50 Ml Syringe) 50 ml IV Q30MIN PRN; Protocol PRN Reason: Hypoglycemia Heparin Sodium (Porcine) (Heparin 5,000 Unit/1 Ml Vial) 5,000 unit SUB-Q Q8HR AZAEL Last Admin: 04/11/21 05:36 Dose: 5,000 unit Documented by: Hydralazine HCl (Hydralazine 20 Mg/1 Ml Inj) 10 mg IV Q6H PRN PRN Reason: htn Sodium Chloride (Nacl 0.9% 1000 Ml) 1,000 mls @ 100 mls/hr IV DIRECT [facility] Last Admin: 04/11/21 05:36 Dose: 100 mls/hr Documented by: Insulin Human Lispro (Insulin Lispro 100 Unit/Ml) 0 unit SUB-Q Q6HR [facility]; Protocol Last Admin: 04/11/21 05:36 Dose: Not Given Documented by: Methocarbamol (Methocarbamol 500 Mg Tab) 500 mg PO BID PRN PRN Reason: Muscle Spasm Morphine Sulfate (Morphine 4 Mg/1 Ml Inj) 2 mg IV Q5MIN PRN PRN Reason: Chest Pain Last Admin: 04/11/21 10:25 Dose: 2 mg Documented by: Naproxen (Naproxen 375 Mg Tab) 375 mg PO BID PRN PRN Reason: Pain, Mild (1-3) Nitroglycerin (Nitroglycerin 0.4 Mg Tab Subl) 0.4 mg SL Q5M PRN PRN Reason: Chest Pain Pantoprazole Sodium (Pantoprazole 40 Mg Tab) 40 mg PO QDAC [facility] Last Admin: 04/11/21 10:18 Dose: 40 mg Documented by: Sodium Chloride (Sodium Chloride 0.9% 10 Ml Flush Syringe) 10 ml IV PRN PRN PRN Reason: LINE FLUSH Tramadol HCl (Tramadol 50 Mg Tab) 50 mg PO Q6H PRN PRN Reason: Pain, Moderate (4-6) Review of Systems Constitutional: sweats, no weight loss, no weight gain, no fever, no chills Ears, nose, mouth and throat: no ear pain, no ear discharge, no nose pain, no nasal congestion, no nasal discharge Cardiovascular: chest pain, no orthopnea, no palpitations, no rapid/irregular heart beat, no edema, no syncope, no lightheadedness, no shortness of breath, no dyspnea on exertion, no leg edema Respiratory: no cough, no hemoptysis, no shortness of breath, no dyspnea on exertion Gastrointestinal: no abdominal pain, no nausea, no vomiting, no diarrhea Genitourinary Female: no pelvic pain, no flank pain Musculoskeletal: no neck stiffness, no neck pain, no shooting arm pain, no arm numbness/tingling, no low back pain Integumentary: no rash, no pruritis, no redness, no sores, no wounds Neurological: no head injury, no paralysis, no weakness, no parathesias, no nu mbness, no tingling, no seizures, no syncope Psychiatric: no anxiety Endocrine: no cold intolerance, no heat intolerance Hematologic/Lymphatic: no easy bruising, no easy bleeding Allergic/Immunologic: no urticaria Physical Examination Last Vital Signs Temp 97.8 F 04/11/21 08:17 Pulse 69 04/11/21 08:17 Resp 18 04/11/21 10:25 BP 110/70 04/11/21 08:17 Pulse Ox 98 04/11/21 08:17 General appearance: no acute distress HEENT: Positive: PERRL, Normocephaly, Mucus Membranes Moist Neck: Positive: neck supple, trachea midline Cardiac: Positive: Reg Rate and Rhythm, S1/S2 Lungs: Positive: Normal Exam, Normal Breath Sounds Neuro: Positive: Grossly Intact Abdomen: Positive: Unremarkable, Soft Extremities: Present: upper extr. pulses, lower extr. pulses. Absent: edema Results 04/11/21 02:21 04/11/21 02:21 Cardiac Enzymes 04/10/21 Range/Units 22:41 AST 20 (5-40) units/L CBC 04/10/21 04/11/21 Range/Units 22:41 02:21 WBC 8.6 10.1 (4.5-11.0) K/mm3 RBC 4.69 4.48 (3.65-5.03) M/mm3 Hgb 12.9 12.5 (10.1-14.3) gm/dl Hct 39.7 37.4 (30.3-42.9) % Plt Count 238 228 (140-440) K/mm3 Lymph # (Auto) 2.5 0.9 L (1.2-5.4) K/mm3 [place] # (Auto) 0.6 0.5 (0.0-0.8) K/mm3 Eos # (Auto) 0.1 0.0 (0.0-0.4) K/mm3 Baso # (Auto) 0.1 0.0 (0.0-0.1) K/mm3 Comprehensive Metabolic Panel 04/10/21 04/11/21 Range/Units 22:41 02:21 Sodium 139 139 (137-145) mmol/L Potassium 3.9 4.1 (3.6-5.0) mmol/L Chloride 103.6 104.2 (98-107) mmol/L Carbon Dioxide 21 L 23 (22-30) mmol/L BUN 14 11 (7-17) mg/dL Creatinine 0.5 L 0.5 L (0.6-1.2) mg/dL Glucose 175 H 122 H (65-100) mg/dL Calcium 8.6 8.4 (8.4-10.2) mg/dL AST 20 (5-40) units/L ALT 16 (7-56) units/L Alkaline Phosphatase 109 (35-129) units/L Total Protein 6.4 (6.3-8.2) g/dL Albumin 4.3 (3.9-5) g/dL - Imaging and Cardiology EKG: report reviewed, image reviewed EKG interpretations - Telemetry EKG Rhythm: Sinus Rhythm - EKG Sinus rhythms and dysrhythmias: sinus rhythm Assessment and Plan Telemetry reviewed: Sinus rhythm seventies. No events Acute coronary syndrome * Chest pain is currently resolved and patient is free of cardiac symptoms * Twelve-lead ECG reviewed: Sinus rhythm 69 with no acute ischemic changes. Troponins are negative x2. IA is ruled out * Lexiscan MPI stress test reviewed (04/11/2021): Negative for reversible ischemia Hypertension * Resume home medication: Amlodipine 5 mg p.o. daily Hyperlipidemia * Resume home medication atorvastatin 40 mg nightly DVT prophylaxis * Heparin SQ Patient is currently stable cardiac status. Chest pain does not appear to be cardiac in etiology, most likely musculoskeletal. Agree with NSAID treatment. Patient may discharge from cardiology standpoint. Will follow on as-needed basis. Recommend follow-up with Dr Rodriguez, Cardiology within 1 to 2 weeks of discharge as needed for recurrent symptoms #[id number] This patient was seen in conjunction with Dr Rodriguez who agrees with assessment and plan of care (1) Acute coronary syndrome Current Visit: Yes Status: Acute Plan to address problem: (2) Hypertension Current Visit: Yes Status: Chronic Plan to address problem: (3) Hyperlipidemia Current Visit: Yes Status: Acute Plan to address problem: (4) Diabetes 1.5, managed as type 2 Current Visit: Yes Status: Acute Plan to address problem: (5) DVT prophylaxis Current Visit: Yes Status: Acute Plan to address problem:
[2021-04-11 12:08] VITALS: BP 124/62
[2021-04-11] MEDS ORDERED: amLODIPine 5 MG TAB PO SCH (13:00)
[2021-04-12] MEDS ORDERED: ASPIRIN EC 325 MG TAB PO SCH (10:00)
--- NOTE | 2021-04-14 11:41 | Electrocardiograph Report ---
[facility] Test Date: 2021-04-11 Test Time: 11:13:13 Pat Name: KAYLEE JIMENEZ Department: Room: A478 1 Gender: F [employer] Hel[employer]: BRENDA : 1955 Requested By: DOREEN CHEN Order Number: [id number] Reading MD: Jignesh Nolen Measurements Intervals [place] Rate: 77 P: 76 MT: 171 QRS: 68 QRSD: 92 T: 53 QT: 353 QTc: 401 Interpretive Statements Sinus rhythm Compared to ECG 04/11/2021 08:43:13 No significant changes Electronically Signed On 04-14-2021 11:40:44 EDT by Jignesh Nolen
== END 2021-04-11 16:31 | disposition home or self-care (01) ==
LOC: ED 22:25 → 4A 04-11 00:09
PROVIDERS: ADMIT Hospitalist; ATTEND Internal Medicine
DX: I24.9 Acute ischemic heart disease, unspecified (principal); I10 Essential (primary) hypertension; E78.5 Hyperlipidemia, unspecified; K21.9 Gastro-esophageal reflux disease without esophagitis; E11.9 Type 2 diabetes mellitus without complications; E78.00 Pure hypercholesterolemia, unspecified; Z79.899 Other long term (current) drug therapy
CPT/HCPCS: 36415; 71045; 78452; 80048; 80053; 82962; 84484; 85025; 93005; 93017; 96361; 96372; 96374; 96375; 96376; 99291; A9502; G0378; J1644; J2270; J2405; J2785; J7030